=== PATIENT | female | born 1995 | race Caucasian/White ===

== ENCOUNTER → 2023-02-14 | Outpatient (CLI) | payer OTHER | LOC: M WUC 09:54 | PROVIDERS: ATTEND Nurse Practitioner Adult Health | DX: M79.641 Pain in right hand (principal) ==

== ENCOUNTER → 2023-12-12 | Outpatient (CLI) | payer OTHER ==
[~2023-12-12] MED LIST: METHACHOLINE KIT (6 VIAL.NEB PREMIX) INH ONE
== END ==
LOC: M CARPUL 09:16
PROVIDERS: ATTEND Physician Assistant
DX: R06.00 Dyspnea, unspecified (principal)
CPT/HCPCS: 94070; 95070; J7674

== ENCOUNTER 2024-08-23 09:31 | Outpatient (RCR) | payer OTHER | END 2024-09-05 | LOC: M PT 09:31 | PROVIDERS: ATTEND General Practice | DX: I89.0 Lymphedema, not elsewhere classified (principal) ==

== ENCOUNTER 2024-10-02 12:00 | Outpatient (RCR) | payer OTHER | END 2024-10-06 | LOC: M PT 12:00 | PROVIDERS: ATTEND General Practice | DX: I89.0 Lymphedema, not elsewhere classified (principal) ==